=== PATIENT | male | born 1985 | race American Indian/Alaskan Native ===

== ENCOUNTER 2019-05-23 06:32 | Emergency (ER) | payer MEDICARE ==
[2019-05-23 07:37] LABS: Amphetamine Screen,Urine PRESUMPTIVE NEGATIVE; Benzodiazepines Screen,Urine PRESUMPTIVE NEGATIVE; Cocaine Screen,Urine PRESUMPTIVE NEGATIVE; Methadone Screen,Urine PRESUMPTIVE NEGATIVE; Opiate Screen,Urine PRESUMPTIVE NEGATIVE
[2019-05-23 07:44] LABS: Bacteria,Urine 1+ /HPF (Negative); Bilirubin,Urine NEG (Negative); Blood,Urine NEG (Negative); Mucus,Urine 3+ /HPF
[2019-05-23 07:52] LABS: Cannabinoid Screen,Urine PRESUMPTIVE POSITIVE
[2019-05-23 07:56] LABS: Color,Urine Yellow (Yellow)
[2019-05-23 07:56] LABS: Hematocrit 43.6 % (35.5-45.6); Hemoglobin 14.5 gm/dl (11.8-15.2); Mean Corpuscular HGB Conc 33 % (32-34); Mean Corpuscular Volume 83 fl (84-94); Platelet Count 317 K/mm3 (140-440); Red Blood Count 5.25 M/mm3 (3.65-5.03); Red Cell Distribution Width 15.6 % (13.2-15.2)
[2019-05-23 07:57] LABS: Basophils % (Auto) 0.5 % (0.0-1.8); Eosinophils % (Auto) 0.1 % (0.0-4.3); Lymphocytes # (Auto) 1.2 K/mm3 (1.2-5.4); Lymphocytes % (Auto) 14.2 % (13.4-35.0); Monocytes # (Auto) 0.6 K/mm3 (0.0-0.8); Monocytes % (Auto) 6.9 % (0.0-7.3)
[2019-05-23 08:13] LABS: BUN/Creatinine Ratio 11; Blood Urea Nitrogen 9 mg/dL (9-20); Calcium 9.6 mg/dL (8.4-10.2); Hemolysis Index 6
[2019-05-23 09:38] VITALS: BP 143/94
--- NOTE | 2019-05-23 10:33 | Emergency Department Report ---
ED Psych HPI - General Chief Complaint: Psych Stated Complaint: MH Time Seen by Provider: 05/23/19 10:27 Source: patient, family Mode of arrival: Ambulatory - History of Present Illness Initial Comments: This is a 33-year-old male with a history of schizophrenia. He is giving a g uarded history. He states that he is compliant with his medicine taking "my old medicine". It is somewhat uncertain as to what he is taking. He does admit to hearing voices. He is not very cooperative with giving detail. His family was already interviewed by the mental health [employer]. According to the family the patient has been running naked in the neighborhood and knocking on random doors. He has been agitated and hallucinating. He has been threatening. This juncture the patient is denying any violent ideation. He has no suicidal intent. He has had previous psychiatric hospitalizations last in 2018 according to the counselor. The patient is found to have loose associations and paranoid ideation. He states he does not want to stay in the hospital because he is afraid "something might happen to my family". Complaint: other -: Gradual, days(s) Associated Psychiatric Symptoms: delusions, other (paranoid ideation) History of same: Yes Quality: intermittent Improves With: none Worsens With: none Associated Symptoms: denies other symptoms Treatments Prior to Arrival: none - Related Data Home Medications Medication Instructions Recorded Confirmed Last Taken Depakene 20 mg PO DAILY 05/23/19 05/23/19 Unknown OLANzapine 10 mg PO DAILY 05/23/19 05/23/19 Unknown RisperDAL 4 mg PO BID 05/23/19 05/23/19 Unknown traZODone 50 mg PO HS 05/23/19 05/23/19 Unknown Allergies Allergy/AdvReac Type Severity Reaction Status Date / Time No Known Allergies Allergy Unverified 05/23/19 07:01 ED Review of Systems ROS: Stated complaint: MH Other details as noted in HPI Constitutional: denies: chills, fever Eyes: denies: eye pain, vision change ENT: denies: ear pain, throat pain Respiratory: denies: cough, shortness of breath, wheezing Cardiovascular: denies: chest pain, palpitations Endocrine: no symptoms reported Gastrointestinal: denies: abdominal pain, nausea, diarrhea Genitourinary: denies: urgency, dysuria Musculoskeletal: denies: back pain, joint swelling, arthralgia Skin: denies: rash, lesions Neurological: denies: headache, weakness, paresthesias Psychiatric: depression, auditory hallucinations, other (paranoid ideation) Hematological/Lymphatic: denies: easy bleeding, easy bruising ED Past Medical Hx - Past Medical History Previous Medical History?: Yes Hx Psychiatric Treatment: Yes (Schizophrenia, Bipolar) - Surgical History Past Surgical History?: No - Social History Smoking Status: Light Tobacco Smoker Substance Use Type: Marijuana - Medications Home Medications: Home Medications Medication Instructions Recorded Confirmed Last Taken Type Depakene 20 mg PO DAILY 05/23/19 05/23/19 Unknown History OLANzapine 10 mg PO DAILY 05/23/19 05/23/19 Unknown History RisperDAL 4 mg PO BID 05/23/19 05/23/19 Unknown History traZODone 50 mg PO HS 05/23/19 05/23/19 Unknown History ED Physical Exam - General Limitations: No Limitations General appearance: alert, in no apparent distress - Head Head exam: Present: atraumatic, normocephalic - Eye Eye exam: Present: normal appearance. Absent: scleral icterus - ENT ENT exam: Present: mucous membranes moist - Neck Neck exam: Present: normal inspection - Respiratory Respiratory exam: Present: normal lung sounds bilaterally. Absent: respiratory distress - Cardiovascular Cardiovascular Exam: Present: regular rate, normal rhythm. Absent: systolic murmur, diastolic murmur, rubs, gallop - GI/Abdominal GI/Abdominal exam: Present: soft, normal bowel sounds. Absent: distended, tenderness, guarding, rebound - Rectal Rectal exam: Present: deferred - Extremities Exam Extremities exam: Present: normal inspection - Back Exam Back exam: Present: normal inspection - Neurological Exam Neurological exam: Present: alert, oriented X3, CN II-XII intact. Absent: motor sensory deficit - Psychiatric Psychiatric exam: Present: flat affect, other (paranoid ideation) - Skin Skin exam: Present: warm, dry, intact, normal color. Absent: rash ED Course Vital Signs 05/23/19 05/23/19 06:53 09:36 Temperature 99.2 F 98.3 F Pulse Rate 103 H 114 H Respiratory 20 18 Rate Blood Pressure 151/83 143/94 O2 Sat by Pulse 95 99 Oximetry ED Medical Decision Making - Lab Data Result diagrams: 05/23/19 07:25 05/23/19 07:25 Laboratory Results - last 24 hr 05/23/19 05/23/19 05/23/19 07:25 07:25 07:25 WBC RBC Hgb Hct MCV MCH MCHC RDW Plt Count Lymph % (Auto) [place] % (Auto) Eos % (Auto) Baso % (Auto) Lymph # [place] # Eos # Baso # Seg Neutrophils % Seg Neutrophils # Sodium 138 Potassium 3.9 Chloride 100.0 Carbon Dioxide 21 L Anion Gap 21 BUN 9 Creatinine 0.8 Estimated GFR > 60 BUN/Creatinine Ratio 11 Glucose 115 H Calcium 9.6 Urine Color Urine Turbidity Urine pH Ur Specific [place] Urine Protein Urine Glucose (UA) Urine Ketones Urine Blood Urine Nitrite Urine Bilirubin Urine Urobilinogen Ur Leukocyte Esterase Urine WBC (Auto) Urine RBC (Auto) Urine Bacteria (Auto) Urine Mucus Salicylates < 0.3 L Urine Opiates Screen Urine Methadone Screen Acetaminophen < 5.0 L Ur Barbiturates Screen Valproic Acid < 2.8 L Ur Phencyclidine Scrn Ur Amphetamines Screen U Benzodiazepines Scrn Urine Cocaine Screen U Marijuana (THC) Screen Drugs of Abuse Note Plasma/Serum Alcohol 05/23/19 05/23/19 05/23/19 07:25 07:25 Unknown WBC 8.3 RBC 5.25 H Hgb 14.5 Hct 43.6 MCV 83 L MCH 28 MCHC 33 RDW 15.6 H Plt Count 317 Lymph % (Auto) 14.2 [place] % (Auto) 6.9 Eos % (Auto) 0.1 Baso % (Auto) 0.5 Lymph # 1.2 [place] # 0.6 Eos # 0.0 Baso # 0.0 Seg Neutrophils % 78.3 H Seg Neutrophils # 6.5 Sodium Potassium Chloride Carbon Dioxide Anion Gap BUN Creatinine Estimated GFR BUN/Creatinine Ratio Glucose Calcium Urine Color Yellow Urine Turbidity Clear Urine pH 6.0 Ur Specific [place] 1.027 Urine Protein 30 mg/dl Urine Glucose (UA) Neg Urine Ketones 20 Urine Blood Neg Urine Nitrite Neg Urine Bilirubin Neg Urine Urobilinogen 2.0 Ur Leukocyte Esterase Neg Urine WBC (Auto) 2.0 Urine RBC (Auto) 2.0 Urine Bacteria (Auto) 1+ Urine Mucus 3+ Salicylates Urine Opiates Screen Urine Methadone Screen Acetaminophen Ur Barbiturates Screen Valproic Acid Ur Phencyclidine Scrn Ur Amphetamines Screen U Benzodiazepines Scrn Urine Cocaine Screen U Marijuana (THC) Screen Drugs of Abuse Note Plasma/Serum Alcohol < 0.01 05/23/19 Unknown WBC RBC Hgb Hct MCV MCH MCHC RDW Plt Count Lymph % (Auto) [place] % (Auto) Eos % (Auto) Baso % (Auto) Lymph # [place] # Eos # Baso # Seg Neutrophils % Seg Neutrophils # Sodium Potassium Chloride Carbon Dioxide Anion Gap BUN Creatinine Estimated GFR BUN/Creatinine Ratio Glucose Calcium Urine Color Urine Turbidity Urine pH Ur Specific [place] Urine Protein Urine Glucose (UA) Urine Ketones Urine Blood Urine Nitrite Urine Bilirubin Urine Urobilinogen Ur Leukocyte Esterase Urine WBC (Auto) Urine RBC (Auto) Urine Bacteria (Auto) Urine Mucus Salicylates Urine Opiates Screen Presumptive negative Urine Methadone Screen Presumptive negative Acetaminophen Ur Barbiturates Screen Presumptive negative Valproic Acid Ur Phencyclidine Scrn Presumptive negative Ur Amphetamines Screen Presumptive negative U Benzodiazepines Scrn Presumptive negative Urine Cocaine Screen Presumptive negative U Marijuana (THC) Screen Presumptive positive Drugs of Abuse Note Disclamer Plasma/Serum Alcohol Critical care attestation.: If time is entered above; I have spent that time in minutes in the direct care of this critically ill patient, excluding procedure time. ED Disposition Clinical Impression: Acute psychosis, Medical clearance for psychiatric admission Schizophrenia Qualifiers: Schizophrenia type: paranoid schizophrenia Qualified Code(s): F20.0 - Paranoid schizophrenia Bipolar disorder Qualifiers: Active/Remission status: currently active Current bipolar episode type: manic Current episode severity: severe Psychotic features: with psychotic features Qualified Code(s): F31.2 - Bipolar disorder, current episode manic severe with psychotic features Disposition: [id number]/[id number] PSY HOSP/PSY UNIT Is pt being admited?: No Does the pt Need Aspirin: No Condition: Stable Referrals: PRIMARY CARE [Primary Care Provider] - 3-5 Days Time of Disposition: 10:36
[2019-05-23] MEDS ORDERED: traZODone 50 MG TAB PO ONE (10:37)
[2019-05-23] MEDS ORDERED: risperiDONE 1 MG TAB PO ONE (10:37)
[2019-05-23] MEDS ORDERED: LORazepam 2 MG/ML VIAL IM PRN (10:38)
[2019-05-23] MEDS ORDERED: MAGNESIUM HYDROXIDE (MOM) ORAL LIQD UDC PO PRN (10:39)
[2019-05-23] MEDS ORDERED: ACETAMINOPHEN 325 MG TAB PO PRN (10:39)
[2019-05-23] MEDS ORDERED: ALUM-MAG HYDROXIDE-SIMETHICONE 200-200-20MG/5ML ORAL LIQD 30 ML PO PRN (10:39)
[2019-05-23] MEDS ORDERED: VALPROIC ACID 250 MG CAP PO ONE (11:00)
== END 2019-05-23 12:39 ==
LOC: ED 06:32
DX: F20.9 Schizophrenia, unspecified (principal); F31.9 Bipolar disorder, unspecified; F29 Unspecified psychosis not due to a substance or known physiological condition; F17.200 Nicotine dependence, unspecified, uncomplicated; F12.10 Cannabis abuse, uncomplicated
CPT/HCPCS: 36415; 80048; 80164; 80307; 80320; 81001; 85025; G0480